=== PATIENT | male | born 1950 | race African-American/Black ===

== ENCOUNTER → 2017-03-01 | Outpatient (CLI) | payer OTHER ==
[~2017-03-01] VITALS: Ht 182.9 cm; Wt 68.0 kg
[~2017-03-01] MED LIST: AMLO10TA2 PO; ASPI-482 PO; ASPI-630 PO; CAPE500T13 PO; HEPARIN PF 500 UNIT/5 ML DISP.SYRIN. IV ONE; HEPARIN for IV BOLUS 10,000 UNIT/10 ML VIAL. ONE; LIDOCAINE 2%/EPI 1:100,000 20 ML VIAL. IJ ONE; LIDOCAINE 2%/EPI 1:100,000 20 ML VIAL. ONE; MIDAZOLAM HCL/PF 2 MG/2 ML VIAL. IV ONE; MIDAZOLAM HCL/PF 2 MG/2 ML VIAL. ONE; MULT-208 PO; OXYC-323 PO; VANCOMYCIN 1GM IVPB FOR OMNI 250 ML IV ONE; VANCOMYCIN 1GM IVPB FOR OMNI 250 ML ONE; fentaNYL PF VIAL 100 MCG/2 ML VIAL IV ONE; fentaNYL PF VIAL 100 MCG/2 ML VIAL ONE
[2017-03-01 07:23] LABS: BASO % 1 % (0-3); EOS % 2 % (0-3); HEMATOCRIT 36.1 % (39.0-53.0); HEMOGLOBIN 11.9 g/dL (13.0-17.5); LYMPH # 1.4 x10^3/uL (1.0-4.8); LYMPH % 34 % (24-48); MEAN CORPUSCULAR HEMOGLOBIN 27 pg (25-35); MEAN CORPUSCULAR HGB CONC 33 g/dL (31-37); MEAN CORPUSCULAR VOLUME 82 fL (79-100); MONO % 2 % (0-9); NEUT % 61 % (31-73); PLATELET COUNT 242 x10^3/uL (140-400); RED BLOOD COUNT 4.41 x10^6/uL (4.30-5.70); RED CELL DISTRIBUTION WIDTH 18.3 % (11.5-14.5)
[2017-03-01 07:32] LABS: INR 1.1 (0.8-1.1); PROTHROMBIN TIME PATIENT 13.2 SEC (11.7-14.0)
[2017-03-01 07:56] VITALS: BP 109/67
[2017-03-01 09:31] VITALS: BP 104/56
[2017-03-01 09:45] VITALS: BP 104/56
[2017-03-01 10:00] VITALS: BP 123/70
--- NOTE | 2017-03-01 10:02 | PDOC1 ---
History and Physical Date of Procedure Date of Admission History of Present Illness Reason for Visit Pancreatic cancer Past Medical History Past Medical History see nursing pre-op assessment Current Medications Current Medications Current Medications Lidocaine/ Epinephrine (Xylocaine 2%-Epi 1:100,000) 20 ml STK-MED ONCE .ROUTE ; Start 03/01/17 at 07:47; Stop 03/01/17 at 07:48; Status DC Heparin Sodium (Porcine) (Heparin Sodium) 10,000 unit STK-MED ONCE .ROUTE ; Start 03/01/17 at 07:47; Stop 03/01/17 at 07:48; Status DC Heparin Sodium/ Sodium Chloride 500 ml @ As Directed STK-MED ONCE .ROUTE ; Start 03/01/17 at 07:47; Stop 03/01/17 at 07:48; Status DC Vancomycin HCl 250 ml @ As Directed STK-MED ONCE .ROUTE ; Start 03/01/17 at 07: 47; Stop 03/01/17 at 07:48; Status DC Heparin Sodium (Porcine) (Hep Lock Adult) 500 unit STK-MED ONCE IV ; Start 03/01 at 08:26; Stop 03/01/17 at 08:27; Status DC Fentanyl Citrate (Fentanyl 2ml Vial) 100 mcg STK-MED ONCE .ROUTE ; Start at 08:31; Stop 03/01/17 at 08:32; Status DC Midazolam HCl (Versed) 2 mg STK-MED ONCE .ROUTE ; Start 03/01/17 at 08:32; Stop 03/01/17 at 08:33; Status DC Cefazolin Sodium 50 ml @ As Directed STK-MED ONCE IV ; Start 03/01/17 at 08:32; Stop 03/01/17 at 08:33; Status DC Heparin Sodium/ Sodium Chloride 1,000 unit 1X ONCE IART Last administered on 09:27; Start 03/01/17 at 09:00; Stop 03/01/17 at 09:06; Status DC Midazolam HCl (Versed) 2 mg 1X ONCE IV Last administered on 03/01/17 09:30; Start 03/01/17 at 09:00; Stop 03/01/17 at 09:06; Status DC Fentanyl Citrate (Fentanyl 2ml Vial) 100 mcg 1X ONCE IV Last administered on 09:29; Start 03/01/17 at 09:00; Stop 03/01/17 at 09:06; Status DC Vancomycin HCl 250 ml @ 250 mls/hr 1X ONCE IV Last administered on 03/01/17 09:28; Start 03/01/17 at 09:00; Stop 03/01/17 at 09:59; Status DC Lidocaine/ Epinephrine (Xylocaine 2%-Epi 1:100,000) 20 ml 1X ONCE IJ Last administered on 03/01/17 09:27; Start 03/01/17 at 09:00; Stop 03/01/17 at 09:06 ; Status DC Heparin Sodium (Porcine) (Hep Lock Adult) 500 unit 1X ONCE IV Last administered on 03/01/17 09:44; Start 03/01/17 at 09:00; Stop 03/01/17 at 09:06 ; Status DC Cefazolin Sodium 50 ml @ 100 mls/hr 1X ONCE IV Last administered on 09:35; Start 03/01/17 at 09:30; Stop 03/01/17 at 09:59; Status DC Active Scripts Active Reported Multi-Day Vitamins (Multivitamin) 1 Each Tablet 1 Each PO Percocet 5-325 Mg Tablet (Oxycodone/Acetaminophen) 1 Each Tablet 2 Tab PO PRN Q6HRS PRN Capecitabine 500 Mg Tablet 500 Mg PO BID Aspir 81 (Aspirin) 81 Mg Tablet. 81 Mg PO Amlodipine Besylate 10 Mg Tablet 10 Mg PO DAILY Allergies Allergies: Coded Allergies: No Known Drug Allergies (Unverified , 03/01/17) Physical Exam Vital Signs Vital Signs Date Time Temp Pulse Resp B/P (MAP) Pulse Ox O2 Delivery O2 Flow Rate FiO2 03/01/17 09:31 94 16 100 Nasal Cannula 3.0 03/01/17 07:56 97.9 109/67 (81) 97.9 Other see nursing pre-op assessment Assessment Assessment Pancreatic cancer Problems: Plan Plan RACHELE Gotti MD Mar 01, 2017 10:02
--- NOTE | 2017-03-01 10:03 | PDOC ---
BRIEF OPERATIVE NOTE Pre-Op Diagnosis Pancreatic cancer Post-Op Diagnosis same Procedure Performed Port Surgeon Zaid Anesthesia Type: Conscious Sedation Findings RIJ port Complications No immediate RACHELE GARCIA MD Mar 01, 2017 10:03
--- NOTE | 2017-03-01 10:03 | PDOC ---
MODERATE SEDATION ASSESSMENT RISKS/ALTERNATIVES Risks/Alternatives Risks and alternatives of this type of sedation and procedure discussed with: RISK/ALTERNATIVES: Patient H & P ON CHART H & P H & P on chart and reviewed for co-morbid conditions and appropriate labs. H&P ON CHART: Yes STATUS PREG STATUS ASSESSED: Yes MEDS/ALLERGIES REVIEWED Meds/Allergies Reviewed Medications and Allergies including time and route of recently administered narcotics and sedatives. MEDS/ALLERGIES REVIEWED: Yes ASA RATING ASA RATING: II AIRWAY ASSESSMENT Airway Assessment Airway patency, oral function limitations, presence of caps, crowns, dentures, partials, and ability to extend neck assessed. AIRWAY ASSESSMENT: Yes MALLAMPATI SCORE MALLAMPATI SCORE: II PRE-SEDATION ASSESSMENT PRE-SEDATION ASSESSMENT: Yes RACHELE GARCIA MD Mar 01, 2017 10:03
[2017-03-01 10:17] VITALS: BP 128/83
[2017-03-01 10:36] VITALS: BP 115/71
[2017-03-01 11:38] LABS: ALBUMIN 2.6 g/dL (3.4-5.0); ALBUMIN/GLOBULIN RATIO 0.5 (1.0-1.7); CALCIUM 9.9 mg/dL (8.5-10.1); CREATININE 0.7 mg/dL (0.7-1.3); GFR 137.4; POTASSIUM 4.2 mmol/L (3.5-5.1); TOTAL BILIRUBIN 0.2 mg/dL (0.2-1.0); TOTAL PROTEIN 7.6 g/dL (6.4-8.2)
--- NOTE | 2017-03-01 16:06 | RAD ---
Procedure: Port-A-Cath placement Clinical Indication: 66-year-old with pancreatic cancer Sedation: Conscious sedation was administered for 15 minutes. The patient was monitored by a qualified independent observer throughout the time of sedation. Please refer to the medical record for exact doses of medications utilized to achieve moderate sedation. Antibiotics: Antibiotic was administered intravenously within 1 hour of the procedure start time. Exposure: Kerma-Area Product: 4 Gycm2 Contrast: None Sterility: All elements of maximal sterile barrier technique including the use of a cap, mask, sterile gown, sterile gloves, large sterile sheet, appropriate hand hygiene, and 2% chlorhexidine for cutaneous antisepsis (or acceptable alternative antiseptic per current guidelines) were followed for this procedure. Consent: The procedure was explained in its entirety to the patient or the patients designated claims service representative by a member of the treatment team, including a discussion of the risks, benefits and commonly accepted alternatives to the procedure, as well as the expected consequences of no therapy whatsoever. Discussion of the risks included, but was not limited to, those that are most frequent and those that are rare but possibly severe or life-threatening, as well as the possibility of unforeseen complications. Technique and Findings: Following informed consent, the patient was prepped and draped in usual sterile fashion. Ultrasound interrogation of the right neck revealed patency of the right internal jugular vein. A Hardcopy ultrasound image was recorded. 1% lidocaine was used to achieve local anesthesia over the right neck. Under ultrasound guidance, a 21-gauge micropuncture needle was used to gain access to the right internal jugular vein. The needle was exchanged over a wire for a peel-away sheath. The right anterior chest wall was then copiously anesthetized with 1% lidocaine plus epinephrine. A small dermatotomy was made. Blunt dissection techniques were used to create a pocket for the port. The port was then tunneled subcutaneously towards the neck dermatotomy then deployed under fluoroscopic guidance through the peel-away sheath such that the distal tip resided at the cavoatrial junction. The port was then accessed and found to flush and aspirate with ease. The port was packed with heparin. The pocket was copiously irrigated with sterile saline then closed with deep interrupted and running subcuticular 4-0 Vicryl suture. Dermabond was used to close the right neck dermatotomy. Complications: No immediate Impression: 1. Ultrasound and fluoroscopic guided Port-A-Cath as described
== END | disposition home or self-care (01) ==
LOC: INTRAD 06:46
PROVIDERS: ATTEND Internal Medicine Hematology & Oncology
DX: C25.9 Malignant neoplasm of pancreas, unspecified (principal); I10 Essential (primary) hypertension; E11.9 Type 2 diabetes mellitus without complications
CPT/HCPCS: 36415; 36561; 76937; 77001; 80053; 85025; 85610; A4215; C1751; C1892; J0690; J1644; J2250; J3010; J3370; J3490; 99152; 99153